=== PATIENT | female | born 1980 | race Two or more races ===

== ENCOUNTER 2019-11-09 00:14 | Emergency (ER) | payer MEDICAID ==
[~2019-11-09] VITALS: Ht 165.1 cm; Wt 62.7 kg
[~2019-11-09 00:14] MED LIST: NITR-87; ONDA4TAB5; PRENATALS
[2019-11-09] MEDS ORDERED: KETOROLAC 30MG/ML VIAL IV STA (00:44)
[2019-11-09 01:31] LABS: BASOPHILS % 0.4 % (0.0-2.0); EOSINOPHILS % 3.1 % (0.0-5.0); HEMATOCRIT. 35.6 % (36.0-48.0); HEMOGLOBIN. 11.9 g/dL (12.0-16.0); LYMPHOCYTES % 35.6 % (20.0-50.0); MEAN CORPUSCULAR HEMOGLOBIN 28.2 pg (28.0-32.0); MEAN CORPUSCULAR VOLUME 84.4 fL (81.0-99.0); MEAN PLATELET VOLUME 10.1 fl (7.4-10.4); MONOCYTES % 6.8 % (2.0-8.0); NEUTROPHILS % 54.1 % (40.0-76.0); PLATELET 202 x1000/uL (130-400); RED BLOOD CELL COUNT 4.22 mill/uL (4.2-5.4); RED CELL DISTRIBUTION WIDTH 15.4 % (11.6-14.6)
[2019-11-09 01:33] LABS: CHLORIDE 107 mEq/L (98-107)
[2019-11-09 01:47] LABS: CLARITY URINE CLEAR (CLEAR); COLOR URINE YELLOW (YELLOW); KETONES URINE NEGATIVE (NEGATIVE); LEUKOCYTE ESTERASE URINE NEGATIVE (NEGATIVE); NITRITE URINE NEGATIVE (NEGATIVE); OCCULT BLOOD URINE NEGATIVE (NEGATIVE); PH URINE 6.5 (4.5-8.0); PROTEIN URINE NEGATIVE (NEGATIVE); SPECIFIC GRAVITY URINE 1.008 (1.005-1.030); UROBILINOGEN URINE 0.2 E.U./dL (0.2-1.0)
[2019-11-09] MEDS ORDERED: SODIUM CHLORIDE 0.9% 1,000 ML IV ONE (01:50)
[2019-11-09 01:59] LABS: HCG SCREEN NEGATIVE
[2019-11-09 02:50] VITALS: BP 90/40
== END 2019-11-09 03:07 | disposition home or self-care (01) ==
LOC: ER 00:26
DX: M54.9 Dorsalgia, unspecified (principal); Z98.890 Other specified postprocedural states
CPT/HCPCS: 36415; 71045; 80053; 81003; 81025; 84484; 84703; 85025; 85379; 93005; 96361; 96374; 99285; J1885; J7030

== ENCOUNTER 2024-06-09 14:32 | Emergency (ER) | payer MEDICAID, OTHER ==
[~2024-06-09] VITALS: Ht 165.1 cm; Wt 65.7 kg
[2024-06-09 14:40] VITALS: BP 114/73; RESP 16; TEMP 36.7; O2SAT 99
[2024-06-09 14:47] VITALS: PULSE 85; O2SAT 100
[2024-06-09] MEDS ORDERED: OFLO5DRO4 RIGHT EAR (15:49)
[2024-06-09] MEDS ORDERED: IBUP-2029 MT (15:49)
== END 2024-06-09 16:00 | disposition home or self-care (01) ==
LOC: ER 14:32
DX: H72.91 Unspecified perforation of tympanic membrane, right ear (principal); Z79.899 Other long term (current) drug therapy; F12.90 Cannabis use, unspecified, uncomplicated; Z98.890 Other specified postprocedural states
CPT/HCPCS: 99283

== ENCOUNTER 2024-07-14 20:33 | Emergency (ER) | payer OTHER ==
[~2024-07-14] VITALS: Ht 165.1 cm; Wt 66.0 kg
[~2024-07-14 20:33] MED LIST changes: +IBUP-2029 MT; +OFLO5DRO4 RIGHT EAR
[2024-07-14 20:36] VITALS: TEMP 36.7; O2SAT 99
[2024-07-14] MEDS ORDERED: OFLO5DRO4 RIGHT EAR (21:06)
[2024-07-14 21:15] VITALS: BP 93/57; PULSE 70; RESP 20; O2SAT 99
== END 2024-07-14 21:24 | disposition home or self-care (01) ==
LOC: ER 20:33
DX: S01.331A Puncture wound without foreign body of right ear, initial encounter (principal); H92.01 Otalgia, right ear; X58.XXXA Exposure to other specified factors, initial encounter; Y93.89 Activity, other specified; Y92.89 Other specified places as the place of occurrence of the external cause; Y99.8 Other external cause status
CPT/HCPCS: 99283

== ENCOUNTER 2024-11-28 19:25 | Emergency (ER) | payer OTHER ==
[~2024-11-28] VITALS: Ht 165.1 cm; Wt 66.0 kg
[2024-11-28 19:50] VITALS: O2SAT 100
[2024-11-28] MEDS: KETOROLAC 30MG/ML VIAL IV ONE (23:09)
[2024-11-28] MEDS: HYDROCODONE/ACETAMINOPHEN 5/325MG TABLET PO ONE (23:09)
[2024-11-28] MEDS: ACETAMINOPHEN 325MG TABLET PO ONE (23:09)
[2024-11-28] MEDS: LIDOCAINE 5% PATCH TOP SCH (23:10)
[2024-11-28] MEDS ORDERED: LIDO-53 TP (23:48)
[2024-11-28] MEDS ORDERED: HYDR-4001 MT (23:48)
[2024-11-28] MEDS ORDERED: IBUP-2029 MT (23:48)
[2024-11-29 00:55] VITALS: BP 106/53; PULSE 64; RESP 18; TEMP 36.6; O2SAT 100
== END 2024-11-29 01:01 | disposition home or self-care (01) ==
LOC: ER 19:25
DX: S30.0XXA Contusion of lower back and pelvis, initial encounter (principal); F12.10 Cannabis abuse, uncomplicated; Z79.899 Other long term (current) drug therapy; Z98.890 Other specified postprocedural states; W01.0XXA Fall on same level from slipping, tripping and stumbling without subsequent striking against object, initial encounter; Y93.89 Activity, other specified; Y92.89 Other specified places as the place of occurrence of the external cause; Y99.8 Other external cause status
CPT/HCPCS: 72220; 96374; 99284; J1885; Z7610

== ENCOUNTER 2025-02-27 01:39 | Emergency (ER) | payer MEDICAID, OTHER ==
[~2025-02-27] VITALS: Ht 165.1 cm; Wt 66.3 kg
[~2025-02-27 01:39] MED LIST changes: +HYDR-4001 MT; +IBUP-1455 MT; -IBUP-2029 MT; +LIDO-53 TP
[2025-02-27 01:50] VITALS: O2SAT 100
[2025-02-27] MEDS: ACETAMINOPHEN 500MG TABLET PO ONE (02:38)
[2025-02-27] MEDS: SODIUM CHLORIDE 0.9% 1,000 ML IV ONE (02:39)
[2025-02-27 03:05] LABS: BASOPHILS % 0.4 % (0.0-2.0); EOSINOPHILS % 1.9 % (0.0-5.0); HEMATOCRIT. 37.5 % (36.0-48.0); HEMOGLOBIN. 12.2 g/dL (12.0-16.0); LYMPHOCYTES % 30.6 % (20.0-50.0); MEAN PLATELET VOLUME 10.1 fl (7.4-10.4); MONOCYTES % 7.8 % (2.0-8.0); NEUTROPHILS % 59.3 % (40.0-76.0); PLATELET 209 x1000/uL (130-400); RED BLOOD CELL COUNT 4.29 mill/uL (4.2-5.4); RED CELL DISTRIBUTION WIDTH 13.0 % (11.6-14.6)
[2025-02-27 03:14] LABS: INR 1.0
[2025-02-27 03:20] LABS: CREATININE 0.8 mg/dL (0.6-1.0); UREA NITROGEN BLOOD 8 mg/dL (9-23)
[2025-02-27 03:22] LABS: ASPARTATE AMINOTRANSFERASE 16 IU/L (<34); BILIRUBIN DIRECT 0.1 mg/dL (<=3.0); BILIRUBIN TOTAL 0.4 mg/dL (0.1-1.0); PROTEIN TOTAL 7.1 g/dL (6.0-8.3)
[2025-02-27 03:26] LABS: HCG SCREEN POSITIVE
[2025-02-27 03:36] LABS: B-HCG QUANTITATIVE 3268 mIU/mL (<6)
[2025-02-27 03:48] VITALS: TEMP 36.8
[2025-02-27 04:21] LABS: CLARITY URINE CLEAR (CLEAR); COLOR URINE YELLOW (YELLOW); GLUCOSE URINE NEGATIVE (NEGATIVE); KETONES URINE NEGATIVE (NEGATIVE); LEUKOCYTE ESTERASE URINE NEGATIVE (NEGATIVE); NITRITE URINE NEGATIVE (NEGATIVE); OCCULT BLOOD URINE 3+ (NEGATIVE); PH URINE 8.0 (4.5-8.0); PROTEIN URINE NEGATIVE (NEGATIVE); SPECIFIC GRAVITY URINE 1.006 (1.005-1.030); UROBILINOGEN URINE 0.2 E.U./dL (0.2-1.0)
[2025-02-27] MEDS ORDERED: HYDR-4001 MT (04:22)
[2025-02-27] MEDS: HYDROCODONE/ACETAMINOPHEN 5/325MG TABLET PO ONE (04:54)
[2025-02-27 04:58] LABS: BACTERIA URINE NONE SEEN; RBC URINE NONE SEEN /hpf (0-2); SQUAMOUS EPITHELIAL CELL URINE FEW /lpf (RARE/1+); WBC URINE NONE SEEN /hpf (0-2)
[2025-02-27 05:02] VITALS: BP 88/53; PULSE 65; RESP 12; O2SAT 100
== END 2025-02-27 05:07 | disposition home or self-care (01) ==
LOC: ER 01:39 → CMPBEDREQ 07:36
DX: O09.521 Supervision of elderly multigravida, first trimester (principal); F12.90 Cannabis use, unspecified, uncomplicated; Z98.890 Other specified postprocedural states; Z3A.01 Less than 8 weeks gestation of pregnancy; O20.0 Threatened abortion
CPT/HCPCS: 80076; 80048; 81003; 84703; 84702; 85025; 85610; 85730; 86850; 86900; 86901; 36415; 76801; 76817; 96360; 99284; J7030; Z7610